=== PATIENT | female | born 1995 | race Caucasian/White ===

== ENCOUNTER 2017-08-17 18:51 | Emergency (ER) | payer SELFPAY ==
[~2017-08-17] VITALS: Ht 172.7 cm; Wt 83.9 kg
[2017-08-17 18:59] VITALS: BP 129/85
[2017-08-17] MEDS ORDERED: LIDOCAINE 1% (LOCAL ANESTH.) PF 5ml SDV ID ONE (21:15)
[2017-08-17] MEDS ORDERED: BACITRACIN TOP OINT 1 UD PKG TOP ONE (21:15)
== END 2017-08-17 22:19 | disposition home or self-care (01) ==
LOC: ER 18:51
DX: S01.81XA Laceration without foreign body of other part of head, initial encounter (principal); W19.XXXA Unspecified fall, initial encounter; Y93.89 Activity, other specified; Y99.8 Other external cause status; Y92.89 Other specified places as the place of occurrence of the external cause
CPT/HCPCS: 12013